=== PATIENT | female | born 1995 | race Caucasian/White ===

== ENCOUNTER → 2024-09-01 17:28 | Outpatient (REF) | payer OTHER, BC, SELFPAY | LOC: RAD 17:28 | PROVIDERS: ATTENDING PHYSICIAN Nurse Practitioner | DX: M25.512 Pain in left shoulder (principal) | CPT/HCPCS: 72072 ==

== ENCOUNTER → 2024-09-07 16:19 | Outpatient (REF) | payer BC, SELFPAY | LOC: RAD 16:19 | PROVIDERS: ATTENDING PHYSICIAN Nurse Practitioner | DX: M54.12 Radiculopathy, cervical region (principal); M25.511 Pain in right shoulder | CPT/HCPCS: 72050; 73030 ==

== ENCOUNTER → 2025-03-25 13:02 | Outpatient (REF) | payer BC, SELFPAY | LOC: HWRAD 13:02 | PROVIDERS: ATTENDING PHYSICIAN Obstetrics & Gynecology; FAMILY PHYSICIAN Nurse Practitioner | DX: N94.12 Deep dyspareunia (principal) | CPT/HCPCS: 76830; 76856 ==

== ENCOUNTER 2025-05-27 06:33 | Day surgery (SDC) | payer BC, SELFPAY | END 2025-05-27 15:52 | disposition home or self-care (01) | LOC: GI 06:33 | PROVIDERS: ATTENDING PHYSICIAN Internal Medicine Gastroenterology | DX: K29.50 Unspecified chronic gastritis without bleeding (principal); K22.89 Other specified disease of esophagus; K31.89 Other diseases of stomach and duodenum; R11.2 Nausea with vomiting, unspecified; K44.9 Diaphragmatic hernia without obstruction or gangrene | CPT/HCPCS: 43239; 88305; 88342 ==

== ENCOUNTER → 2025-05-31 17:35 | Outpatient (REF) | payer BC, SELFPAY | LOC: RAD 17:35 | PROVIDERS: ATTENDING PHYSICIAN Internal Medicine Gastroenterology; FAMILY PHYSICIAN Nurse Practitioner | DX: R19.7 Diarrhea, unspecified (principal) | CPT/HCPCS: 74177; Q9967 ==

== ENCOUNTER → 2025-07-26 07:57 | Outpatient (REF) | payer BC, SELFPAY | LOC: RAD 07:57 | PROVIDERS: ATTENDING PHYSICIAN Internal Medicine Gastroenterology | DX: R11.2 Nausea with vomiting, unspecified (principal) | CPT/HCPCS: 78264; A9541 ==